=== PATIENT | female | born 1975 | race Caucasian/White ===

== ENCOUNTER → 2019-12-31 | Outpatient (CLI) | payer OTHER ==
[~2019-12-31] MED LIST: ATIVAN0.5 MG; BENADRYL25 MG; FLONASE16 GM; IBUPROFEN 800800 MG PO; LEVOTHYROXINE0.2 M1; ZOLOFT25 MG
[2019-12-31 13:01] LABS: EOSINOPHILS 4.8 % (0.0-3.0)
[2019-12-31 13:02] LABS: BASOPHILS 0.6 % (0.0-2.0); HEMATOCRIT 44.2 % (37.0-47.0); HEMOGLOBIN 15.1 gm/dL (12.0-15.0); MCH 30.6 pg (26.0-34.0); MCHC 34.2 g/dL (28.0-37.0); MCV 89.6 fL (80.0-100.0); MONOCYTES 9.5 % (1.0-8.0); PLATELET COUNT 276 thou/uL (150-400); POLYS 50.1 % (36.0-66.0); RBC 4.94 mil/uL (4.20-5.00); RDW 13.3 % (10.5-14.5); WBC 8.1 thou/uL (4.0-11.0)
[2019-12-31 13:17] LABS: ALBUMIN 4.3 g/dL (3.4-5.0); ANION GAP 8 mmol/L (7-16); BUN 10 mg/dL (7-18); CALCIUM 9.4 mg/dL (8.5-10.1); CHLORIDE 102 mmol/L (98-107); CHOLESTEROL 209 mg/dL (<200); CO2 28 mmol/L (21-32); CREATININE 0.9 mg/dL (0.6-1.0); GLUCOSE 78 mg/dL (74-106); HDL CHOLESTEROL 32 mg/dL (>40); LDL CHOLESTEROL 126 mg/dL (<100); POTASSIUM 4.5 mmol/L (3.5-5.1); SGOT 22 U/L (15-37); SGPT 34 U/L (30-65); SODIUM 138 mmol/L (136-145); TC:HDL 6.5 Ratio (Not establshd); TOTAL BILIRUBIN 0.5 mg/dL (0.2-1.0); TOTAL PROTEIN 8.1 g/dL (6.4-8.2); TRIGLYCERIDE 259 mg/dL (<150); VLDL 52 mg/dL (<40)
== END ==
LOC: LABMALL 12:18
PROVIDERS: ATTEND Nurse Practitioner
DX: E03.9 Hypothyroidism, unspecified (principal); R11.0 Nausea; R42 Dizziness and giddiness; E78.2 Mixed hyperlipidemia